=== PATIENT | male | born 1960 | race Caucasian/White ===

== ENCOUNTER 2022-06-01 17:28 | Emergency (ER) | payer BC ==
[~2022-06-01] VITALS: Ht 177.8 cm; Wt 113.6 kg
[2022-06-01 18:45] LABS: Basophils # (auto) 0.1 10 ^3/uL (0-0.2); Basophils % (auto) 1.3 % (0.0-2.0); Eosinophils # (auto) 0.1 10 ^3/uL (0-0.8); Eosinophils % (auto) 0.6 % (0.0-7.0); Hematocrit 44.6 % (41.0-53.0); Lymphocytes # (auto) 1.8 10 ^3/uL (0.4-5.4); Lymphocytes % (auto) 21.5 % (10.0-50.0); Mean Corpuscular Hemoglobin 32.8 pg (28.0-32.0); Mean Corpuscular Hgb Conc. 33.7 g/dL (32.0-36.0); Mean Corpuscular Volume 97.4 fL (80.0-100.0); Monocytes # (auto) 0.6 10 ^3/uL (0-1.3); Monocytes % (auto) 7.2 % (0.0-12.0); Neutrophils # (auto) 5.9 10 ^3/uL (1.6-8.6); Neutrophils % (auto) 69.4 % (37.0-80.0); Red Blood Cells 4.58 10^6/uL (4.5-5.90); Red Cell Distribution Width 13.4 % (11.8-14.3); White Blood Cell 8.6 10^3/uL (4.4-10.8)
[2022-06-01] MEDS ORDERED: LABETALOL HCL 5 MG/ML 4ML SYRINGE IV ONE (18:45)
[2022-06-01 19:02] LABS: Albumin 3.7 g/dL (3.4-5.0); Calcium 8.9 mg/dL (8.5-10.1); Potassium 3.2 mmol/L (3.5-5.1)
[2022-06-01 19:04] LABS: BUN/Creatinine Ratio 20.2
[2022-06-01 19:07] LABS: Bilirubin, Total 0.7 mg/dL (0.2-1.0); Total Protein 7.9 g/dL (6.4-8.2)
[2022-06-01 23:55] VITALS: BP 175/96
== END 2022-06-02 00:27 | disposition home or self-care (01) ==
LOC: ER 17:32
DX: I16.0 Hypertensive urgency (principal); Z90.89 Acquired absence of other organs
CPT/HCPCS: 36415; 70450; 71045; 80053; 84484; 85025; 93005; J3490

== ENCOUNTER 2024-08-16 20:02 | Inpatient (IN) | payer BC, OTHER ==
[~2024-08-16] VITALS: Ht 172.7 cm; Wt 114.4 kg
--- NOTE | 2024-08-16 20:43 | ED.PDOC ---
History of Present Illness HPI Comments 64 y/o M, with a Hx of HTN, obesity, and EtOH abuse, presents with c/o palpitations and generalized tremors for 5 days. Patient reports persisting episodes of sudden palpitations and tremors, intermittently, following initial, unprovoked onset 5 days ago. Patient comments on recent cessation of EtOH use 2 days ago. Patient endorses on no recent stress, injuries, sick contact, travel, or substance use/exposure. Patient admits to no further relevant or pertinent past medical, surgical, or family Hx. Patient denies having any chest pain, shortness of breath, dizziness, vision or speech changes, nausea, vomiting, fever, chills, or other associated symptoms or modifiers at this time. Chief Complaint: Palpitations Time Seen by MD: 20:18 Primary Care Provider: MARLON Reviewed Notes: Nurses Notes, Medications, Allergies Allergies: Coded Allergies: NO KNOWN ALLERGIES (Unverified , 03/17/15) Information Source: Patient Mode of Arrival: Ambulatory Severity: Moderate Timing: Days Duration: Since onset Prehospital treatment: None Past Medical History PAST MEDICAL HISTORY: HTN Past Medical History (Other): obesity Surgical History: Appendectomy, Hernia Repair Family History Family History: Family hx of Cancer, Family hx of heart sal Social History Smoker: Non-Smoker Alcohol: Heavy Drugs: Denies Drug Use Lives In: Home Constitutional: denies: chills, diaphoresis, fatigue, fever, malaise, sweats, weakness, others EENTM: denies: blurred vision, double vision, ear bleeding, ear discharge, ear drainage, ear pain, ear ringing, eye pain, eye redness, hearing loss, mouth pain, mouth swelling, nasal discharge, nose bleeding, nose congestion, nose pain, photophobia, tearing, throat pain, throat swelling, voice changes, others Respiratory: denies: cough, hemoptysis, orthopnea, SOB at rest, shortness of breath, SOB with excertion, stridor, wheezing, others Cardiovascular: reports: palpitations; denies: chest pain, dizzy spells, diaphoresis, Dyspnea on exertion, edema, irregular heart beat, left arm pain, lightheadedness, PND, syncope, others Gastrointestinal: denies: abdomen distended, abdominal pain, blood streaked bowels, constipated, diarrhea, dysphagia, difficulty swallowing, hematemesis, melena, nausea, poor appetite, poor fluid intake, rectal bleeding, rectal pain, vomiting, others Genitourinary: denies: burning, dysuria, flank pain, frequency, hematuria, incontinence, penile discharge, penile sore, pain, testicle pain, testicle swelling, urgency, others Neurological: reports: tremors (generalized ); denies: dizziness, fainting, headache, left sided numbness, left sided weakness, numbness, paresthesia, pre- existing deficit, right sided numbness, right sided weakness, seizure, speech problems, tingling, weakness, others Musculoskeletal: denies: back pain, gout, joint pain, joint swelling, muscle pain, muscle stiffness, neck pain, others Integumetry: denies: bruises, change in color, change in hair/nails, dryness, laceration, lesions, lumps, rash, wounds, others Allergic/Immunocompromised: denies: Difficulty Healing, Frequent Infections, Hives, Itching, others Hematologic/Lymphatic: denies: anemia, blood clots, easy bleeding, easy bruising, swollen glands, others Endocrine: denies: excessive hunger, excessive sweating, excessive thirst, excessive urination, flushing, intolerance to cold, intolerance to heat, unexplained weight gain, unexplained weight loss, others Psychiatric: denies: anxiety, bipolar disorder, depression, hopeless, panic disorder, schizophrenia, sleepless, suicidal, others All Other Systems: Reviewed and Negative Physical Exam General Appearance: No Apparent Distress, Obese HEENT: Normal ENT Inspection, Pharynx Normal, TMs Normal Neck: Full Range of Motion, Non-Tender, Normal, Normal Inspection Respiratory: Chest Non-Tender, Lungs Clear, No Accessory Muscle Use, No Respiratory Distress, Normal Breath Sounds Cardiovascular: No Edema, No JVD, No Murmur, No Gallop, Normal Peripheral Pulses, Regular Rate/Rhythm Breast Exam: Deferred Gastrointestinal: No Organomegaly, Non Tender, No Pulsatile Mass, Normal Bowel Sounds, Soft Genitalia: Deferred Pelvic: Deferred Rectal: Deferred Extremities: No calf tenderness, Normal capillary refill, Normal inspection, Normal range of motion, Non-tender, No pedal edema Musculoskeletal : Apperance: Normal Neurologic: Alert, 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 Was a procedure done?: No EKG EKG : Pulse Rate (adult): 94 [place]: Normal Cardiac Rhythm: NSR Block: None Hypertrophy: None ST: Normal Differential Dx Considerations may include: WA, ACS, angina, costochondritis, arrhythmia, anxiety, panic attack, substance abuse X-Ray, Labs, Meds, VS Vital Signs Date Time Temp Pulse Resp B/P (MAP) Pulse Ox O2 Delivery O2 Flow Rate FiO2 08/16/24 20:43 94 08/16/24 20:10 98.0 94 18 149/84 (105) 97 Lab Test 08/16/24 20:57 08/16/24 20:15 08/16/24 20:11 Range/Units Troponin I High Sensitivity 3 L 3 L </=54 ng/L White Blood Count 8.4 4.4-10.8 10^3/uL Red Blood Count 4.33 L 4.5-5.90 10^6/uL Hemoglobin 15.5 13.5-17.5 g/dL Hematocrit 45.0 41.0-53.0 % Mean Corpuscular Volume 103.7 H 80.0-100.0 fL Mean Corpuscular Hemoglobin 35.9 H 28.0-32.0 pg Mean Corpuscular Hemoglobin Concent 34.6 32.0-36.0 g/dL Red Cell Distribution Width 13.9 11.8-14.3 % Platelet Count 220 140-450 10^3/uL Mean Platelet Volume 8.6 6.9-10.8 fL Neutrophils (%) (Auto) 70.6 37.0-80.0 % Lymphocytes (%) (Auto) 18.2 10.0-50.0 % Monocytes (%) (Auto) 9.7 0.0-12.0 % Eosinophils (%) (Auto) 0.7 0.0-7.0 % Basophils (%) (Auto) 0.8 0.0-2.0 % Neutrophils # (Auto) 5.9 1.6-8.6 10 ^3/uL Lymphocytes # (Auto) 1.5 0.4-5.4 10 ^3/uL Monocytes # (Auto) 0.8 0-1.3 10 ^3/uL Eosinophils # (Auto) 0.1 0-0.8 10 ^3/uL Basophils # (Auto) 0.1 0-0.2 10 ^3/uL Nucleated Red Blood Cells 0.0 % Sodium Level 142 136-145 mmol/L Potassium Level 3.1 L 3.5-5.1 mmol/L Chloride Level 105 98-107 mmol/L Carbon Dioxide Level 29 20-31 mmol/L Anion Gap 8 5-15 Blood Urea Nitrogen 17 9-23 mg/dL Creatinine 0.91 0.700-1.30 mg/dL Glomerular Filtration Rate Calc 94 >90 mL/min BUN/Creatinine Ratio 18.7 10.0-20.0 Serum Glucose 105 74-106 mg/dL Calcium Level 9.8 8.7-10.4 mg/dL Magnesium Level 1.8 1.6-2.6 mg/dL [place] [id number] Ph: [phone] DIAGNOSTIC IMAGING Diagnostic Imaging Report : [id number] Signed PATIENT: EVA ALTAMIRANO ACCT: [id number] UNIT: [id number] : 1960 LOC: ER ROOM / BED: / AGE / SEX: 64 / M ADM STATUS: REG ER SERVICE 19 ORDERING PHYSICIAN: ALICIA FONG MD PROCEDURE(s): CXR2 - CHEST TWO VIEWS ROUTINE REASON: palpitations ORDER NUMBER(s): [id number], ACCESSION NUMBER(s): [id number] CHEST TWO VIEWS ROUTINE CLINICAL HISTORY: palpitations COMPARISON: None TECHNIQUE: Frontal and lateral view of the chest was obtained FINDINGS: Lines and Tubes: None Lungs: No focal consolidation. Pleura: No effusion. No pneumothorax. Cardiomediastinal contours: Unremarkable Bones: No acute osseous abnormality. IMPRESSION: No acute cardiopulmonary disease. ATED BY: ANIVAL LONGO DO DICTATED DATE/TIME: 08/16/242104 SIGNED BY: ANIVAL LONGO DO SIGNED DATE/TIME: 08/16/242104 CC: Time of 1ST Reevaluation: 20:48 Reevaluation 1ST: Unchanged Patient Education/Counseling: Diagnosis, Treatment Family Education/Counseling: No Family Present Departure 1 Departure Time of Disposition: 22:51 (Patient presented with chest pain and palpitations that was concerning for possible STEMI, ACS, PE, Pneumonia, Muscle Strain, COPD, Dissection. Data: 1. I ordered and reviewed the result of at least 3 labs including a CBC, BMP, and Troponin. 2. I independently interpreted the following tests: EKG which shows sinus arrhythmia and Chest X-ray which shows benign chest.Risk:This patient has a high risk of morbidity due to further diagnostic testing or treatment and may suffer from an acute cardiac or respiratory disorder. Workup reveals concern for palpitations versus electrolyte abnormality and patient should be admitted for further workup and possible expert consultation. ) Impression: Primary Impression: Acute chest pain Additional Impressions: Palpitations Alcohol abuse Disposition: ADMITTED INPATIENT Admit to: Med Surg Condition: Serious Critical Care Note Critical Care Time?: Yes Critical care comment: Active chest pain Authorized and Performed by: Alicia Fong MD Total critical care time: Approximately 38 minutes Due to a high probability of clinically significant, life threatening deteriora tion, the patient required my highest level of preparedness to intervene emergently and I personally spent this critical care time directly and personally managing the patient. This critical care time included obtaining a history; examining the patient; pulse oximetry; ordering and review of studies; arranging urgent treatment with development of a management plan; evaluation of patient's response to treatment; frequent reassessment; and, discussions with other providers. This critical care time was performed to assess and manage the high probability of imminent, life-threatening deterioration that could result in multi-organ failure. It was exclusive of separately billable procedures and treating other patients and teaching time. Please see my other sections and the rest of the note for further information on patient assessment and treatment. Stability Stability form required: No Heart Score Heart Score: Heart Score Response (Comments) Value History Moderate Suspicious 1 EKG Normal 0 Age 45-64 1 Risk Factors 1 or 2 risk factors 1 Troponin Normal limit 0 Total 3 I personally scribed for ALICIA FONG MD ([email or web address]) on 08/16/24 at 20:43. Electronically submitted by Aleksandar Rogers ([email or web address]). I personally scribed for ALICIA FONG MD ([email or web address]) on 08/16/24 at 21:12. Electronically submitted by Aleksandar Rogers ([email or web address]). ALICIA FONG MD Aug 16, 2024 20:43
[2024-08-16 21:03] LABS: Eosinophils # (auto) 0.1 10 ^3/uL (0-0.8); Eosinophils % (auto) 0.7 % (0.0-7.0); Monocytes # (auto) 0.8 10 ^3/uL (0-1.3)
[2024-08-16 21:04] LABS: Basophils # (auto) 0.1 10 ^3/uL (0-0.2); Basophils % (auto) 0.8 % (0.0-2.0); Hemoglobin 15.5 g/dL (13.5-17.5); Lymphocytes # (auto) 1.5 10 ^3/uL (0.4-5.4); Lymphocytes % (auto) 18.2 % (10.0-50.0); Mean Corpuscular Hemoglobin 35.9 pg (28.0-32.0); Mean Corpuscular Hgb Conc. 34.6 g/dL (32.0-36.0); Mean Corpuscular Volume 103.7 fL (80.0-100.0); Monocytes % (auto) 9.7 % (0.0-12.0); Neutrophils # (auto) 5.9 10 ^3/uL (1.6-8.6); Neutrophils % (auto) 70.6 % (37.0-80.0); Platelet Count (auto) 220 10^3/uL (140-450); Red Blood Cells 4.33 10^6/uL (4.5-5.90); Red Cell Distribution Width 13.9 % (11.8-14.3); White Blood Cell 8.4 10^3/uL (4.4-10.8)
--- NOTE | 2024-08-16 21:08 | DVH ---
XY CHEST TWO VIEWS ROUTINE CLINICAL HISTORY: palpitations COMPARISON: None TECHNIQUE: Frontal and lateral view of the chest was obtained FINDINGS: Lines and Tubes: None Lungs: No focal consolidation. Pleura: No effusion. No pneumothorax. Cardiomediastinal contours: Unremarkable Bones: No acute osseous abnormality. IMPRESSION: No acute cardiopulmonary disease.
[2024-08-16 21:18] LABS: Chloride 105 mmol/L (98-107); Potassium 3.1 mmol/L (3.5-5.1); Sodium 142 mmol/L (136-145)
[2024-08-16 21:19] LABS: Anion Gap 8 (5-15); Carbon Dioxide 29 mmol/L (20-31)
[2024-08-16 21:20] LABS: Calcium 9.8 mg/dL (8.7-10.4)
[2024-08-16 21:24] LABS: Glucose 105 mg/dL (74-106)
[2024-08-16 21:25] LABS: BUN/Creatinine Ratio 18.7 (10.0-20.0); Blood Urea Nitrogen 17 mg/dL (9-23); Magnesium 1.8 mg/dL (1.6-2.6)
[2024-08-17] VITALS (9 sets, daily range): BP systolic 124–164; BP diastolic 75–87; PULSE 68–93; RESP 17–20; TEMP 97.6–99.1; O2SAT 95–98
[2024-08-17] MEDS ORDERED: TEMAZEPAM 15 MG CAP PO PRN
[2024-08-17] MEDS ORDERED: ONDANSETRON HCL 4 MG/2 ML VIAL IV PRN
[2024-08-17] MEDS ORDERED: NITROGLYCERIN 0.4 MG SL TAB SL PRN
[2024-08-17] MEDS ORDERED: MORPHINE SULFATE INJ 2 MG/ml SYRG IV PRN
[2024-08-17] MEDS ORDERED: chlordiazePOXIDE HCL 25 MG CAP PO PRN
--- NOTE | 2024-08-17 00:12 | DVHHP2 ---
History of Present Illness Reason for Visit: Palpitations History of Present Illness 64-year-old male presents for evaluation of palpitations. Patient reports a five day history of developing intermittent palpitations. He states that two days ago he stopped drinking alcohol. Denies any chest pain or shortness for breath. No nausea or vomiting. Denies any dizziness. No other acute complaints reported. Past Medical History Hypertension Past Surgical History Hernia repair and appendectomy Family History Heart disease and cancer Smoke: No ALCOHOL: heavy Drugs: None Lives: with Family Review of Systems Review of Systems Review of systems are currently negative otherwise addressed in HPI. Allergies: Coded Allergies: NO KNOWN ALLERGIES (Unverified , 03/17/15) Medications Current Medications Medications Dose Ordered Sig/Roxana Route Start Time Stop Time Status Last Admin Dose Admin Chlordiazepoxide HCl 25 mg Q6HPRN PRN PO 08/17/24 00:00 Hydrochlorothiazide 25 mg DAILY PO 08/17/24 10:00 Atenolol 50 mg DAILY PO 08/17/24 10:00 Thiamine HCl 100 mg DAILY PO 08/17/24 10:00 Folic Acid 1 mg DAILY PO 08/17/24 10:00 Temazepam 15 mg QHSP PRN PO 08/17/24 00:00 Ondansetron HCl 4 mg Q4HP PRN IV 08/17/24 00:00 Nitroglycerin 0.4 mg Q5MINP PRN SL 08/17/24 00:00 Morphine Sulfate 2 mg Q30M PRN IV 08/17/24 00:00 Exam Vital Signs Vital Signs Date Time Temp Pulse Resp B/P (MAP) Pulse Ox O2 Delivery O2 Flow Rate FiO2 08/16/24 20:43 94 08/16/24 20:10 98.0 18 149/84 (105) 97 Exam Gen: 64-year-old male in no apparent distress Skin: Warm, dry, normal color and texture, no rash. HEENT: Normocephalic atraumatic, mucous membranes moist and pink. Neck: Cervical and supraclavicular nodes normal without enlargement, trachea is midline, thyroid gland is normal without masses. Pulmonary: Clear to auscultation and percussion bilaterally. Cardiac: Regular rate and rhythm. No murmur Abdomen: Soft, nontender, nondistended, bowel sounds present all 4 quadrants, no guarding, no rigidity, no organomegaly. Extremities: No cyanosis, clubbing, no edema Neuro: Cranial nerves II through XII grossly intact, normal affect and speech, no focal motor deficits. Labs/Xrays ORDERING PHYSICIAN: ALICIA DANIEL MD PROCEDURE(s): CXR2 - CHEST TWO VIEWS ROUTINE REASON: palpitations ORDER NUMBER(s): [id number], ACCESSION NUMBER(s): [id number] XY CHEST TWO VIEWS ROUTINE CLINICAL HISTORY: palpitations COMPARISON: None TECHNIQUE: Frontal and lateral view of the chest was obtained FINDINGS: Lines and Tubes: None Lungs: No focal consolidation. Pleura: No effusion. No pneumothorax. Cardiomediastinal contours: Unremarkable Bones: No acute osseous abnormality. IMPRESSION: No acute cardiopulmonary disease. Labs Test 08/16/24 20:57 08/16/24 20:15 08/16/24 20:11 Range/Units Troponin I High Sensitivity 3 L </=54 ng/L White Blood Count 8.4 4.4-10.8 10^3/uL Red Blood Count 4.33 L 4.5-5.90 10^6/uL Hemoglobin 15.5 13.5-17.5 g/dL Hematocrit 45.0 41.0-53.0 % Mean Corpuscular Volume 103.7 H 80.0-100.0 fL Mean Corpuscular Hemoglobin 35.9 H 28.0-32.0 pg Mean Corpuscular Hemoglobin Concent 34.6 32.0-36.0 g/dL Red Cell Distribution Width 13.9 11.8-14.3 % Platelet Count 220 140-450 10^3/uL Mean Platelet Volume 8.6 6.9-10.8 fL Neutrophils (%) (Auto) 70.6 37.0-80.0 % Lymphocytes (%) (Auto) 18.2 10.0-50.0 % Monocytes (%) (Auto) 9.7 0.0-12.0 % Eosinophils (%) (Auto) 0.7 0.0-7.0 % Basophils (%) (Auto) 0.8 0.0-2.0 % Neutrophils # (Auto) 5.9 1.6-8.6 10 ^3/uL Lymphocytes # (Auto) 1.5 0.4-5.4 10 ^3/uL Monocytes # (Auto) 0.8 0-1.3 10 ^3/uL Eosinophils # (Auto) 0.1 0-0.8 10 ^3/uL Basophils # (Auto) 0.1 0-0.2 10 ^3/uL Nucleated Red Blood Cells 0.0 % Sodium Level 142 136-145 mmol/L Potassium Level 3.1 L 3.5-5.1 mmol/L Chloride Level 105 98-107 mmol/L Carbon Dioxide Level 29 20-31 mmol/L Anion Gap 8 5-15 Blood Urea Nitrogen 17 9-23 mg/dL Creatinine 0.91 0.700-1.30 mg/dL Glomerular Filtration Rate Calc 94 >90 mL/min BUN/Creatinine Ratio 18.7 10.0-20.0 Serum Glucose 105 74-106 mg/dL Calcium Level 9.8 8.7-10.4 mg/dL Magnesium Level 1.8 1.6-2.6 mg/dL Assessment/Plan Assessment/Plan Assessment Palpitations Alcohol withdrawal Hypertension Electrolyte imbalance Plan Admit the patient to telemetry to the hospitalist Cardiology consultation Replete electrolytes Librium Resume home medications Continue treatment per orders. Plan discussed with: Patient My Orders Orders - SOFIE PETTIT AGACNP Procedure Category Date Status Time Chlordiazepoxide Hcl PHA 08/17/24 In Process Capsule (Librium Ca 00:00 * Cardiology Consult CONS 08/16/24 Transmitted 23:55 Hydrochlorothiazide PHA 08/17/24 In Process Tablet (Hydrochlorot 10:00 Atenolol Tablet PHA 08/17/24 In Process (Tenormin Tablet) 10:00 Thyroid Stimulating LAB 08/16/24 In Process Hormone 23:55 Thiamine Tab PHA 08/17/24 In Process 10:00 Folic Acid Tablet PHA 08/17/24 In Process 10:00 Basic Metabolic Panel LAB 08/17/24 Logged 04:00 Admit ADMIT 08/16/24 Transmitted 23:55 Temazepam (Restoril) PHA 08/17/24 In Process 00:00 Ondansetron Hcl PHA 08/17/24 In Process (Zofran) 00:00 Cardiac DIET 08/17/24 Transmitted Diet-2gna,Lofat,Lochol Breakfast Echo 2d Mode Cardiac US 08/16/24 Logged DOP 23:55 Condition: Fair EMMANUELLE 11/6/24 In Process 23:55 Bedrest With Bathroom [facility] 08/16/24 In Process Privileg 23:55 Nitroglycerin [facility] 08/17/24 In Process Sublingual (Ntrostat 00:00 Morphine Sulfate PHA 08/17/24 In Process Injection 00:00 Stat Ekg For Chest [facility] 08/16/24 In Process Pain 23:55 Notify Md Of Changes [facility] 08/16/24 In Process From Base 23:55 Torch Brazer For [facility] 08/16/24 In Process 24 Hours 23:55 Emergency Dysrhythmia [facility] 08/16/24 In Process Protocol 23:55 Rhythm Strips Once [facility] 08/16/24 In Process Every Shift 23:55 Oxygen By Nasal RT 08/16/24 Transmitted Cannula 23:55 Date of Service: Aug 16, 2024 Billing Provider: SOFIE PETTIT Common Visit Codes: [id number] INP/OBS CARE (HIGH) SOFIE PETTIT Aug 17, 2024 00:12
[2024-08-17] MEDS: FUROSEMIDE 40 MG TAB PO ONE (01:18)
[2024-08-17] MEDS: POTASSIUM EFFERVESENT TAB 25 MEQ PO ONE (01:19)
[2024-08-17 04:54] LABS: Chloride 106 mmol/L (98-107); Potassium 3.2 mmol/L (3.5-5.1); Sodium 140 mmol/L (136-145)
[2024-08-17 04:56] LABS: Anion Gap 7 (5-15); Calcium 9.6 mg/dL (8.7-10.4); Carbon Dioxide 27 mmol/L (20-31)
[2024-08-17 05:01] LABS: BUN/Creatinine Ratio 20.8 (10.0-20.0); Blood Urea Nitrogen 16 mg/dL (9-23); Glucose 96 mg/dL (74-106)
--- NOTE | 2024-08-17 06:20 | ECG ---
[facility] Test Date: 2024-08-16 Test Time: 20:10:39 Pat Name: EVA ALTAMIRANO Department: ER Room: 0215T B Gender: M Sight Effects Specialist: EMILIANO : 1960 Requested By: ALICIA DANIEL Order Number: [id number] Reading MD: Heath Macario Measurements Intervals [place] Rate: 94 P: 8 UT: 53 QRS: 32 QRSD: 102 T: 26 QT: 361 QTc: 452 Interpretive Statements Sinus rhythm Short UT interval Low voltage, precordial leads Electronically Signed On 08-17-2024 12:46:11 PST by Heath Macario Please click the below link to view image of tracing.
[2024-08-17] MEDS ORDERED: ATEN50TA PO (06:21)
[2024-08-17] MEDS ORDERED: HYDR25TA4 PO (06:21)
[2024-08-17] MEDS: cloNIDine HCL 0.1 MG TAB PO ONE (06:48)
[2024-08-17] MEDS: MAGNESIUM CITRATE SOLUTION 300 ML BTL PO ONE (09:00)
[2024-08-17] MEDS: ATENOLOL 25 MG TAB PO SCH (10:30)
[2024-08-17] MEDS: FOLIC ACID 1 MG TAB PO SCH (10:31)
[2024-08-17] MEDS: THIAMINE HCL 100 MG TAB PO SCH (10:31)
[2024-08-17] MEDS: hydroCHLOROthiazide 25 MG TAB PO SCH (10:31)
[2024-08-17] MEDS: ASPirin 81 mg TAB PO SCH (10:31)
--- NOTE | 2024-08-17 10:31 | DVHINCON2 ---
Date Seen: Aug 17, 2024 Referring Physician Reason for Consultation palpitations History of Present Illness 64-year-old male patient with past medical history of alcohol abuse, hypertension and type 2 obesity who presents to the hospital with a chief complaint of palpitation for the last 5 days. Patient reports he is with the symptoms since Wednesday, he denies any chest pain or shortness of breadth associated with the palpitations. Patient was admitted yesterday, on today's evaluation his hands noted to be shaking, he denies any sweating, anxiety, visual or auditory disturbances. Patient denies using cigarettes or drugs but reports he has been drinking alcohol since his adolescence. He used to drink 3-4 drinks combined with juice, the last time was 2 days ago. Cardiology was consulted because of palpitations, electrocardiogram was unremarkable and troponin levels were negative, echocardiogram is still pending we are going to follow-up on results. We recommend to continue monitoring for withdrawal symptoms. Past Medical History Hypertension Alcohol abuse Type 2 obesity Family History: Hypertension G8 FATHER Ischemic heart disease G8 FATHER Malignant melanoma G8 MOTHER Allergies: Coded Allergies: NO KNOWN ALLERGIES (Unverified , 03/17/15) Home Meds Reported Medications Hydrochlorothiazide (Hydrochlorothiazide) 25 Mg Tab, 20 MG PO DAILY for 30 Days, MG 08/17/24 Atenolol (Atenolol) 50 Mg Tab, 50 MG PO DAILY for 30 Days, MG 08/17/24 Current Medications Current Medications Medications (Trade) Dose Ordered Sig/Roxana Route PRN Reason Start Time Stop Time Status Last Admin Chlordiazepoxide HCl (Librium Capsule) 25 mg Q6HPRN PRN PO ALCOHOL WITHDRAWAL SYMPTOMS 08/17/24 00:00 Hydrochlorothiazide (hydroCHLOROthiazide TABLET) 25 mg DAILY PO 08/17/24 10:00 Atenolol (Tenormin Tablet) 50 mg DAILY PO 08/17/24 10:00 Thiamine HCl 100 mg DAILY PO 08/17/24 10:00 Folic Acid 1 mg DAILY PO 08/17/24 10:00 Temazepam (Restoril) 15 mg QHSP PRN PO FOR INSOMNIA 08/17/24 00:00 Ondansetron HCl (Zofran) 4 mg Q4HP PRN IV NAUSEA / VOMITING 08/17/24 00:00 Nitroglycerin (Ntrostat Sublingual) 0.4 mg Q5MINP PRN SL FOR CHEST PAIN 08/17/24 00:00 Morphine Sulfate 2 mg Q30M PRN IV FOR CHEST PAIN 08/17/24 00:00 Aspirin 81 mg DAILY PO 08/17/24 10:00 Atorvastatin Calcium (Lipitor) 10 mg HS PO 08/17/24 22:00 Review of Systems Constitutional: Yes: Hot sensation No:Sweats, Weakness, Malaise, Other Eyes: No: Pain, Vision change, Conjunctivae inflammation, Eyelid inflammation, Other, Redness ENT: No: Ear pain, Ear discharge, Nose pain, Nose discharge, Nose congestion, Mouth pain, Mouth swelling, Throat pain, Throat swelling, Other Respiratory: No Wheezing, Hemoptysis, Pleuritic Pain, Sputum, Wheezing, Other Cardiovascular: No: Chest Pain, Palpitations, Orthopnea, Paroxysmal Noc. Dyspnea, Edema, Lt Headedness, Other Gastrointestinal: No: Nausea, Vomiting, Abdominal Pain, Diarrhea, Constipation, Melena, Hematochezia, Other Musculoskeletal: No: other, neck pain, shoulder pain, arm pain, back pain, hand pain, leg pain, foot pain Neurological:; No: Weakness, Numbness, Incoordination, Change in speech, Confusion, Seizures Vital Signs Vital Signs Date Time Temp Pulse Resp B/P (MAP) Pulse Ox O2 Delivery O2 Flow Rate FiO2 08/17/24 09:24 98.3 84 17 124/75 (91) 97 98.3 08/17/24 05:55 Room Air* 0 21 Physical Exam Examination General Appearance: Alert, Oriented X3, Cooperative, No acute distress HEENT: EOMI Respiratory: Clear to auscultation, Normal air movement Cardiovascular: Regular rate, Normal S1, Normal S2 Abdominal: Normal bowel sounds Extremities: No cyanosis, No edema, Normal pulses, No tenderness/swelling Skin: No rashes, No breakdown Neuro: Normal gait, Normal speech, Strength at 5/5 X4 ext, Normal tone, Sensation intact, Cranial nerves 3-12 NL, Reflexes 2+ Psych/Mental Status: Mental status NL, Mood NL Labs/Diagnostic Data Labs Test 08/17/24 04:05 08/16/24 20:57 08/16/24 20:15 08/16/24 20:11 Range/Units Sodium Level 140 136-145 mmol/L Potassium Level 3.2 L 3.5-5.1 mmol/L Chloride Level 106 98-107 mmol/L Carbon Dioxide Level 27 20-31 mmol/L Anion Gap 7 5-15 Blood Urea Nitrogen 16 9-23 mg/dL Creatinine 0.77 0.700-1.30 mg/dL Glomerular Filtration Rate Calc 100 >90 mL/min BUN/Creatinine Ratio 20.8 H 10.0-20.0 Serum Glucose 96 74-106 mg/dL Calcium Level 9.6 8.7-10.4 mg/dL Troponin I High Sensitivity 3 L </=54 ng/L Thyroid Stimulating Hormone (TSH) 3.55 0.55-4.78 uIU/mL White Blood Count 8.4 4.4-10.8 10^3/uL Red Blood Count 4.33 L 4.5-5.90 10^6/uL Hemoglobin 15.5 13.5-17.5 g/dL Hematocrit 45.0 41.0-53.0 % Mean Corpuscular Volume 103.7 H 80.0-100.0 fL Mean Corpuscular Hemoglobin 35.9 H 28.0-32.0 pg Mean Corpuscular Hemoglobin Concent 34.6 32.0-36.0 g/dL Red Cell Distribution Width 13.9 11.8-14.3 % Platelet Count 220 140-450 10^3/uL Mean Platelet Volume 8.6 6.9-10.8 fL Neutrophils (%) (Auto) 70.6 37.0-80.0 % Lymphocytes (%) (Auto) 18.2 10.0-50.0 % Monocytes (%) (Auto) 9.7 0.0-12.0 % Eosinophils (%) (Auto) 0.7 0.0-7.0 % Basophils (%) (Auto) 0.8 0.0-2.0 % Neutrophils # (Auto) 5.9 1.6-8.6 10 ^3/uL Lymphocytes # (Auto) 1.5 0.4-5.4 10 ^3/uL Monocytes # (Auto) 0.8 0-1.3 10 ^3/uL Eosinophils # (Auto) 0.1 0-0.8 10 ^3/uL Basophils # (Auto) 0.1 0-0.2 10 ^3/uL Nucleated Red Blood Cells 0.0 % Magnesium Level 1.8 1.6-2.6 mg/dL Assessment Alcohol abuse rule out alcohol withdrawal, CIWA score 3 points Sinus tachycardia likely due to early signs of alcohol withdrawal Electrolyte imbalance (potassium, magnesium) Uncontrolled hypertension Hepatic steatosis Type 2 obesity Plan/Recommendation Conservative management, treat underlying condition Continue chlordiazepoxide Monitor blood pressure Keep Potassium more than 4 mg, magnesium more than 2 mg Lifestyle modification counseling focused on improved dietary habits and phys ical activity outpatient event monitor echocardiogram showed LVEF 55% Thank you for letting us participate in this case, there is no further workup indicated at this time, we are signing off. Case discussed with Dr. Askew Critical care, time spent: 49 minutes. Plan discussed with: Patient Date of Service: Aug 17, 2024 Billing Provider: YURI ASKEW MD Cardiology Common Codes: [id number] INP/OBS CARE (High) JOEY TURK RESIDENT Aug 17, 2024 10:31
[2024-08-17] MEDS: MAGNESIUM OXIDE 400 MG TAB PO ONE ×2 (13:15→17:00)
--- NOTE | 2024-08-17 13:23 | DVHSR ---
APPROVED REPORT EXAM: Two-dimensional and M-mode echocardiogram with Doppler and color Doppler. Blood Pressure: 164/87 mmHg INDICATION Palpitations RISK FACTORS Height: 68, Weight: 252 DIMENSIONS LVDd5.3 (3.8-5.7cm)LA (2D)4.4 (1.9-4.0cm)Aortic Root3.9 (2.0-3.7cm) LVDs3.8 (2.5-4.0cm)LA (MM) (1.9-4.0cm)Aortic Cusp Exc2.1 (1.5-2.0cm) EF (%) 55.0 (55-70%)Rt. Atrium3.8 (1.9-4.0cm)Asc. Aorta cm IVSd1.3 (0.7-1.1cm)RV (D) (1.8-2.4cm) PWd1.4 (0.7-1.1cm) Mitral Valve MitralMitral Stenosis E wave0.55m/sMV Mean GR.mmHg A wave0.75m/sMV Peak GR.mmHg E/A ratio0.72D MVAcm2 DECEL [id number] 1/2 [id number] IVRTmsDop MVA5.63cm2 Aortic Valve Aortic ValveAortic Stenosis V10.93m/Sukhjinder Mean GR.4mmHg V21.44m/Sukhjinder Peak GR.8mmHg LVOT Diameter2.6 (1.8-2.4cm)Doppler AVA3.43cm2 Pulmonic Valve V21.20m/s Other Information Technically limited study due to body habitus. Conclusion Normal left ventricular size and dimension. Normal left ventricular systolic function estimated ejec tion fraction 55%. There is a grade 1 diastolic dysfunction. Normal right ventricular size and dimension. Normal right ventricular systolic function. Normal biatrial size and dimension. Normal aortic valve structure and function. Normal mitral valve structure and function. Normal tricuspid valve structure and function. The pulmonary valve is grossly normal. No pericardial effusion.
--- NOTE | 2024-08-17 13:39 | DVHPN2 ---
Subjective History of Present Illness 64-year-old male patient with past medical history of alcohol cirrhosis, hypertension and type 2 obesity who presents to the hospital with a chief complaint of palpitation for the last 5 days. Patient reports he is with the symptoms since Wednesday, he denies any chest pain or shortness of breadth associated with the palpitations. Patient was admitted yesterday, on today's evaluation his hands noted to be shaking, he denies any sweating, anxiety, visual or auditory disturbances. Patient denies using cigarettes or drugs but reports he has been drinking alcohol since his adolescence. He used to drink 3-4 drinks combined with juice, the last time was 2 days ago. update: - 08/17 - contuines having palpitations. otherwise doing well. Reviewed: H&P Changes from previous H/P or p: No Changes General: Per HPI Objective Vitals Vital Signs Date Time Temp Pulse Resp B/P (MAP) Pulse Ox O2 Delivery O2 Flow Rate FiO2 08/17/24 10:31 125/74 08/17/24 10:30 84 08/17/24 09:24 98.3 17 97 98.3 08/17/24 08:00 Room Air* 0 21 Exam GEN: Healthy appearing, well-developed, NAD. HEENT: NC/AT; MMM. CV: Irregular rhythm, no m/r/g. LUNGS: CTAB, no w/r/c. ABD: Soft, NT NBS, no masses or organomegaly. Distended EXT: skin Warm, well perfused. no rashes. No clubbing, cyanosis, or edema. NEURO: Ambulating with no limitations. No focal deficits. Medications Current Medications Medications Dose Ordered Sig/Roxana Route Start Time Stop Time Status Last Admin Dose Admin Chlordiazepoxide HCl 25 mg Q6HPRN PRN PO 08/17/24 00:00 Hydrochlorothiazide 25 mg DAILY PO 08/17/24 10:00 08/17/24 10:31 25 MG Atenolol 50 mg DAILY PO 08/17/24 10:00 08/17/24 10:30 50 MG Thiamine HCl 100 mg DAILY PO 08/17/24 10:00 08/17/24 10:31 100 MG Folic Acid 1 mg DAILY PO 08/17/24 10:00 08/17/24 10:31 1 MG Temazepam 15 mg QHSP PRN PO 08/17/24 00:00 Ondansetron HCl 4 mg Q4HP PRN IV 08/17/24 00:00 Nitroglycerin 0.4 mg Q5MINP PRN SL 08/17/24 00:00 Morphine Sulfate 2 mg Q30M PRN IV 08/17/24 00:00 Aspirin 81 mg DAILY PO 08/17/24 10:00 08/17/24 10:31 81 MG Atorvastatin Calcium 10 mg HS PO 08/17/24 22:00 Laboratory Results Laboratory Tests 08/16/24 20:11 08/17/24 04:05 Chemistry Test 08/16/24 20:11 08/17/24 04:05 Calcium Level 9.8 mg/dL (8.7-10.4) 9.6 mg/dL (8.7-10.4) Magnesium Level 1.8 mg/dL (1.6-2.6) HgA1c, TSH Test 08/16/24 20:15 Thyroid Stimulating Hormone (TSH) 3.55 uIU/mL (0.55-4.78) Labs and/or images reviewed: Labs reviewed by me, Image(s) reviewed by me Assessment/Plan Assessment/Plan Palpitations PVC - troponins negative, EKG unconcerning. - on tele patient has PVC unknown burden Cardiology consulted. - given 1x MgOx - patient already on atenolol as home medication. will wait to get further rec from cardiology Hypokalemia-replete p.r.n. Alcohol cirrhosis History of alcohol abuse Hepatic steatosis - on CIWA protocol, CIWA score remains low, no signs of withdrawal -distended abdomen likely chronic cirrhosis. Patient follows hepatology, no records. CMP stable. Ativan p.r.n. for CIWA more than 8 supplement B1, supplement folate p.o.. Plan discussed with: Patient My Orders Orders - ANDIE WINSTON MD Procedure Category Date Status Time Magnesium Oxide PHA 08/17/24 Logged Tablet (Mag-Ox Tablet) 13:15 Date of Service: Aug 17, 2024 Billing Provider: ANDIE WINSTON MD Common Visit Codes: [id number] INP/OBS CARE(HIGH) ANDIE WINSTON MD Aug 17, 2024 13:38
[2024-08-17] MEDS: ATORVASTATIN 20 MG TAB PO SCH (22:08)
[2024-08-17] MEDS: ATENOLOL 25 MG TAB PO ONE (22:12)
[2024-08-18 01:00] VITALS: BP 133/69; PULSE 69; RESP 19; TEMP 98.1; O2SAT 96
[2024-08-18 05:00] VITALS: BP 110/46; PULSE 70; RESP 19; TEMP 97.8; O2SAT 97
[2024-08-18 08:00] VITALS: PULSE 87; PULSE 88; RESP 19; O2SAT 98
[2024-08-18 08:42] VITALS: BP 128/89; PULSE 86; RESP 18; TEMP 98.5; O2SAT 98
[2024-08-18] MEDS: ATENOLOL 25 MG TAB PO SCH (09:22)
[2024-08-18] MEDS ORDERED: ATEN25TA PO (11:52)
[2024-08-18] MEDS ORDERED: ATEN100T PO (11:53)
--- NOTE | 2024-08-18 12:02 | DVHDS2 ---
Discharge Summary Date of Admission Aug 16, 2024 at 23:55 Date of Discharge: Aug 18, 2024 Labs/Diagnostic Data: Laboratory Results Test 08/17/24 04:05 08/16/24 20:57 08/16/24 20:15 08/16/24 20:11 Sodium Level 140 mmol/L (136-145) Potassium Level 3.2 mmol/L (3.5-5.1) Chloride Level 106 mmol/L (98-107) Carbon Dioxide Level 27 mmol/L (20-31) Anion Gap 7 (5-15) Blood Urea Nitrogen 16 mg/dL (9-23) Creatinine 0.77 mg/dL (0.700-1.30) Glomerular Filtration Rate Calc 100 mL/min (>90) BUN/Creatinine Ratio 20.8 (10.0-20.0) Serum Glucose 96 mg/dL (74-106) Calcium Level 9.6 mg/dL (8.7-10.4) Troponin I High Sensitivity 3 ng/L (</=54) Thyroid Stimulating Hormone (TSH) 3.55 uIU/mL (0.55-4.78) White Blood Count 8.4 10^3/uL (4.4-10.8) Red Blood Count 4.33 10^6/uL (4.5-5.90) Hemoglobin 15.5 g/dL (13.5-17.5) Hematocrit 45.0 % (41.0-53.0) Mean Corpuscular Volume 103.7 fL (80.0-100.0) Mean Corpuscular Hemoglobin 35.9 pg (28.0-32.0) Mean Corpuscular Hemoglobin Concent 34.6 g/dL (32.0-36.0) Red Cell Distribution Width 13.9 % (11.8-14.3) Platelet Count 220 10^3/uL (140-450) Mean Platelet Volume 8.6 fL (6.9-10.8) Neutrophils (%) (Auto) 70.6 % (37.0-80.0) Lymphocytes (%) (Auto) 18.2 % (10.0-50.0) Monocytes (%) (Auto) 9.7 % (0.0-12.0) Eosinophils (%) (Auto) 0.7 % (0.0-7.0) Basophils (%) (Auto) 0.8 % (0.0-2.0) Neutrophils # (Auto) 5.9 10 ^3/uL (1.6-8.6) Lymphocytes # (Auto) 1.5 10 ^3/uL (0.4-5.4) Monocytes # (Auto) 0.8 10 ^3/uL (0-1.3) Eosinophils # (Auto) 0.1 10 ^3/uL (0-0.8) Basophils # (Auto) 0.1 10 ^3/uL (0-0.2) Nucleated Red Blood Cells 0.0 % Magnesium Level 1.8 mg/dL (1.6-2.6) Other Laboratory Tests 08/17/24 04:05 08/16/24 20:11 Brief Hx & Hospital Course: 64-year-old male patient with past medical history of alcohol cirrhosis, hypertension and type 2 obesity who presents to the hospital with a chief complaint of palpitation for the last 5 days. Patient reports he is with the symptoms since Wednesday, he denies any chest pain or shortness of breadth associated with the palpitations. troponins negative, EKG unconcerning. on tele patient has PVC unknown burden. cardioogy recommends up titrate beta-reg until PVC frequency improves. Patient already on atenolol which was up titrated from 50 to 100 mg daily. Overnight PVC burden appears to be less frequent. Patient is stable palpitations are decreasing, plan made to follow up closely outpatient. Patient prefers Dr. youngblood as his also sees him. Diagnosis: PVC, palpitations, Alcohol cirrhosis ; History of alcohol abuse; Hepatic steatosis Discharge plan - increase to atenolol 100mg daily - f/u with cardiology (dr youngblood), setup for holter monitor 48 hour to eval for PVC burden - continue regular f/u with liver specialist for ongoing cirrhosis. Visitation and planning required 35 minutes Condition at Discharge: Fair Final Diagnosis/Problems List PVC causing palpitations Discharge Disposition: Home Discharge Instruct/Medications Diet: Cardiac 2g Na,low cholest Activity: No Restrictions, As Tolerated Follow Up/Referral: cardiology Dr Youngblood, PCP Medications: as below. Discharge Statement: "Patient was advised to return to the ER or call 911 if any headaches, dizziness, shortness of breath, chest pain, abdominal pain, bleeding, fevers, or worsening of medical condition. Patient was counseled about treatment plan, medications, possible side effects, patientverbalized understanding. All questions were answered to the best of my ability. This discharge took greater then 30 minutes in planning, reviewing documentation, counseling the patient, and discussing with other team members." ASSESSMENT ASSESSMENT Assessment PVC, palpitations, Alcohol cirrhosis ; History of alcohol abuse; Hepatic steatosis Date of Service: Aug 18, 2024 Billing Provider: ANDIE WINSTON MD Common Visit Codes: [id number]/[id number] DISCH DAY >30min ANDIE WINSTON MD Aug 18, 2024 12:02
[2024-08-18 12:08] VITALS: BP 128/89; PULSE 86; RESP 18; TEMP 98.5; O2SAT 98
== END 2024-08-18 12:30 | disposition home or self-care (01) | DRG 433 ==
LOC: ER 20:02 → TELE 23:55 → TELE-CENTR 23:59
PROVIDERS: ADMIT Nurse Practitioner; ATTEND Student in an Organized Health Care Education/Training Program
DX: K70.30 Alcoholic cirrhosis of liver without ascites (principal); F10.139 Alcohol abuse with withdrawal, unspecified; I49.3 Ventricular premature depolarization; K76.0 Fatty (change of) liver, not elsewhere classified; E66.9 Obesity, unspecified; E87.6 Hypokalemia; Y90.9 Presence of alcohol in blood, level not specified; I10 Essential (primary) hypertension; Z82.49 Family history of ischemic heart disease and other diseases of the circulatory system; Z80.8 Family history of malignant neoplasm of other organs or systems; Z68.38 Body mass index [BMI] 38.0-38.9, adult
CPT/HCPCS: 36415; 71046; 80048; 83735; 84443; 84484; 85025; 93005; 93306; 99291; G0378

== ENCOUNTER 2025-01-08 05:08 | Emergency (ER) | payer OTHER, SELFPAY ==
[~2025-01-08] VITALS: Ht 177.8 cm; Wt 110.6 kg
[~2025-01-08 05:08] MED LIST: ATEN100T PO; HYDR25TA4 PO
--- NOTE | 2025-01-08 05:39 | ED.PDOC ---
History of Present Illness HPI Comments 64 y/o obese M, with a history of AFIB, PVC's, DMII, HTN, and alcohol cirrhosis, presents with c/o palpitations, today. Patient endorses on sudden and unprovoked onset of palpitations that awoke him from his sleep, this morning. Since then, patient reports on palpitations subsiding on its own and refuses any lab work and only inquires for an EKG to ensure he is fine. He also mentions pending consultation for a Maze procedure with his book solicitor, Dr. Ford Barrett MD. He denies having any symptoms at this time. Chief Complaint: Palpitations Time Seen by MD: 05:10 Primary Care Provider: [facility] Reviewed Notes: Nurses Notes, Medications, Allergies Allergies: Coded Allergies: NO KNOWN ALLERGIES (Unverified , 03/17/15) Home Meds Active Scripts Atenolol (Atenolol) 100 Mg Tab, 100 MG PO DAILY for 30 Days, #30 TAB 1 Refill Prov:ANDIE WINSTON MD 08/18/24 Reported Medications Hydrochlorothiazide (Hydrochlorothiazide) 25 Mg Tab, 20 MG PO DAILY for 30 Days, MG 08/17/24 Information Source: Patient Mode of Arrival: Ambulatory Past Medical History PAST MEDICAL HISTORY: AFIB, DM (type II ), HTN, Liver (liver cirrhosis, alcohol induced ) Past Medical History (Other): PVC's, obesity Surgical History: Appendectomy, Hernia Repair Family History Family History: Family hx of Cancer, Family hx of heart sal Social History Smoker: Non-Smoker Alcohol: Heavy Drugs: Denies Drug Use Lives In: Home All Other Systems: Reviewed and Negative (Comprehensive systems review obtained and negative except for what is stated in the HPI.) Physical Exam General Appearance: No Apparent Distress, Normal HEENT: Normal ENT Inspection, Pharynx Normal, TMs Normal Neck: Full Range of Motion, Non-Tender, Normal, Normal Inspection Respiratory: Chest Non-Tender, Lungs Clear, No Accessory Muscle Use, No Respiratory Distress, Normal Breath Sounds Cardiovascular: No Edema, No JVD, No Murmur, No Gallop, Normal Peripheral Pulses, Regular Rate/Rhythm Breast Exam: Deferred Gastrointestinal: No Organomegaly, Non Tender, No Pulsatile Mass, Normal Bowel Sounds, Soft Genitalia: Deferred Pelvic: Deferred Rectal: Deferred Extremities: No calf tenderness, Normal capillary refill, Normal inspection, Normal range of motion, Non-tender, No pedal edema Musculoskeletal : Apperance: Normal Neurologic: Alert, mandrel press hand II-XII nml as Tested, No Motor Deficits, Normal Affect, Normal Mood, No Sensory Deficits Cerebellar Function: Normal Reflexes: Normal Skin: Dry, Normal Color, Warm Lymphatic: No Adenopathy Was a procedure done? Was a procedure done?: No EKG EKG : Pulse Rate (adult): 92 [place]: Normal Cardiac Rhythm: NSR Block: None Hypertrophy: None ST: Normal Differential Dx Considerations may include: arrhythmia, AFIB, tachycardia. PVCs, anxiety X-Ray, Labs, Meds, VS Vital Signs Date Time Temp Pulse Resp B/P (MAP) Pulse Ox O2 Delivery O2 Flow Rate FiO2 01/08/25 05:25 99.5 92 18 169/92 (117) 98 99.5 Lab Test 01/08/25 05:21 Range/Units Troponin I High Sensitivity Pending Time of 1ST Reevaluation: 05:40 Reevaluation 1ST: Resolved Patient Education/Counseling: Diagnosis, Treatment, Prognosis, Need For Follow Up Family Education/Counseling: No Family Present Additional Information Previous visit documents reviewed: August 16, 2024 for acute chest pain The following tests were ordered, and results were reviewed by me: troponin, EKG Additional Information was gathered from interviewing the following independent historians: n/a I reviewed and agreed with the following test results read by other providers: n/a I discussed treatment and results with medical personnel and: Patient pt is asymptomatic now. he has preexisting afib and has discussed the Maze procedure with Dr Youngblood. he declined to have any test done, other than the ekg. he will follow up with Dr Youngblood Departure 1 Departure Time of Disposition: 05:41 Impression: Primary Impression: Atrial fib/flutter, transient Disposition: HOME / SELF CARE / HOMELESS Condition: Good Discharged With: Self Critical Care Note Critical Care Time?: No Stability Stability form required: No Heart Score Heart Score: Heart Score Response (Comments) Value History N/A 0 EKG N/A 0 Age N/A 0 Risk Factors N/A 0 Troponin N/A 0 Total 0 I personally scribed for RUBI RESTREPO MD ([email or web address]) on 01/08/25 at 05:39. Electronically submitted by Aleksandar Rogers [email or web address]). RUBI RESTREPO MD Jan 08, 2025 05:39
[2025-01-08 05:50] VITALS: BP 169/92; PULSE 92; RESP 18; TEMP 99.5; O2SAT 98
--- NOTE | 2025-01-08 07:46 | ECG ---
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
== END 2025-01-08 05:53 | disposition home or self-care (01) ==
LOC: ER 05:08
DX: I48.91 Unspecified atrial fibrillation (principal); I48.92 Unspecified atrial flutter; I10 Essential (primary) hypertension; E11.9 Type 2 diabetes mellitus without complications; E66.9 Obesity, unspecified; Z79.899 Other long term (current) drug therapy; Z90.49 Acquired absence of other specified parts of digestive tract; Z98.890 Other specified postprocedural states
CPT/HCPCS: 36415; 84484; 93005

== ENCOUNTER 2025-03-29 14:07 | Outpatient (CLI) | payer OTHER ==
[2025-03-29 14:39] LABS: Urine Bacteria FEW /hpf (None Seen); Urine Blood Negative /uL (Negative); Urine Clarity Clear (Clear); Urine Color Yellow (Yellow); Urine Mucus FEW (None Seen); Urine Protein, UAD Negative (Negative); Urine Squamous Epithelial Cell None Seen /hpf (<5); Urine Urobilinogen Normal (Negative); Urine WBC < 1 /HPF (0-3)
[2025-03-29 15:11] LABS: Prostate Specific Antigen 0.6 ng/mL (0.0-4.0)
[2025-03-29 15:15] LABS: Free T4 (Free Thyroxine) 0.94 ng/dL (0.89-1.76)
== END 2025-03-29 17:00 | disposition home or self-care (01) ==
LOC: LAB 14:07
PROVIDERS: ATTEND Internal Medicine
DX: Z12.11 Encounter for screening for malignant neoplasm of colon (principal); I10 Essential (primary) hypertension
CPT/HCPCS: 36415; 81001; 83735; 84153; 84439

== ENCOUNTER 2025-04-24 12:35 | Outpatient (CLI) | payer OTHER | END 2025-04-24 17:00 | disposition home or self-care (01) | LOC: Rad HDHVI 12:35 | PROVIDERS: ATTEND Internal Medicine Cardiovascular Disease | DX: I48.0 Paroxysmal atrial fibrillation (principal); I51.7 Cardiomegaly | CPT/HCPCS: 93306 ==